=== PATIENT | male | born 1965 ===

== ENCOUNTER 2023-08-16 13:22 | Outpatient (CLI) | payer OTHER, SELFPAY ==
--- NOTE | ~2023-08-16 | CT_ITS ---
Clinical Indication: Melanoma restaging CT Scan of the Chest, Abdomen, and Pelvis with Contrast: Technique: Contiguous sections were acquired throughout the chest, abdomen, and pelvis after intraven ous administration of 100 cc of Omnipaque 350. Dose reduction technique was used on this scan by jocelyn mcclain automated exposure control and iterative reconstruction technique. The dose-length product (DL P) was 847.81 mGy-cm. Comparison: 07/26/2018 Findings: There is no evidence of any significant mediastinal, hilar or axillary lymphadenopathy. The mediastin al soft tissues and vascular structures appear normal. There is no evidence of pleural or pericardial effusion. The lungs are clear, aside from calcified right lower lobe granuloma. No suspicious pulmonary nodule. The liver, pancreas, gallbladder, left adrenal gland and kidneys are within normal limits. Stable pro bable small right adrenal gland nodule. Small splenic cyst present. There are atherosclerotic calcifi cations of the aorta. No lymphadenopathy. No bowel obstruction or bowel wall thickening. There is no evidence to suggest acute appendicitis. Th ere are 2 separate small to moderate fat-containing ventral hernias, superior to the umbilicus. There is additional small to moderate fat-containing umbilical hernia.. Urinary bladder is unremarkable. No pelvic mass seen. No ascites. Impression: No evidence of metastatic disease. Reviewed, dictated and finalized at location . Impression: No evidence of metastatic disease.
[2023-08-16 13:58] LABS: Estimated Glomerular Filt Rate 57
== END 2023-08-16 13:23 | disposition home or self-care (01) ==
LOC: CHSIMG 13:25
DX: C69.32 Malignant neoplasm of left choroid (principal)
CPT/HCPCS: 71260; 74177; Q9967